=== PATIENT | female | born 1940 | race Caucasian/White ===

== ENCOUNTER 2020-01-18 20:21 | Emergency (ER) | payer MEDICARE ==
[~2020-01-18] VITALS: Ht 157.5 cm; Wt 65.7 kg
[~2020-01-18 20:21] MED LIST: APIX5TAB3 PO; HYDR-4353 PO
[2020-01-18] MEDS ORDERED: morphine 4 MG/ML inj SYRINge IV ONE (21:05)
[2020-01-18] MEDS ORDERED: ondansetron/PF 4mg/2ml inj IV ONE (21:05)
[2020-01-18] MEDS ORDERED: normal saline 1000ml 1,000 ML IV ONE (21:05)
[2020-01-18 22:00] LABS: BASOPHILS # (AUTO) 0.1 X10'3 (0-0.2); BASOPHILS % (AUTO) 0.4 % (0-1); EOSINOPHILS # (AUTO) 0.1 X10'3 (0-0.9); EOSINOPHILS % (AUTO) 0.6 % (0-6); LYMPHOCYTES % (AUTO) 15.4 % (21-51); MEAN CORPUSCULAR HEMOGLOBIN 30.6 PG (27.0-31.0); MEAN CORPUSCULAR HGB CONC 33.4 g/dL (33.0-36.5); MEAN CORPUSCULAR VOLUME 91.8 FL (78-98); MONOCYTES # (AUTO) 1.7 X10'3 (0-0.9); MONOCYTES % (AUTO) 12.9 % (2-12); NEUTROPHILS % (AUTO) 70.7 % (42-75); PLATELET COUNT 381 X10'3 (140-440); RED CELL DISTRIBUTION WIDTH 13.4 % (11.5-14.5); WHITE BLOOD COUNT 12.8 X10'3 (4.5-11.0)
[2020-01-18 22:12] LABS: ALANINE AMINOTRANSFERASE 34 U/L (12-78); ALBUMIN 2.8 G/DL (3.4-5.0); ALBUMIN/GLOBULIN RATIO 0.6 (1.1-1.5); ALKALINE PHOSPHATASE 254 IU/L (46-116); ANION GAP 6 (8-16); ASPARTATE AMINO TRANSFERASE 59 U/L (10-37); BILIRUBIN,TOTAL 0.8 MG/DL (0.1-1.0); BLOOD UREA NITROGEN 9 MG/DL (7-18); CALCIUM 8.8 MG/DL (8.5-10.1); CHLORIDE 102 MMOL/L (99-107); CREATININE 0.69 MG/DL (0.40-0.90); GLUCOSE 121 MG/DL (70-104); MAGNESIUM 1.7 MG/DL (1.5-2.4); POTASSIUM 3.5 MMOL/L (3.5-5.1); SODIUM 135 MMOL/L (135-145); TOTAL CARBON DIOXIDE 26.6 MMOL/L (24-32); TOTAL PROTEIN 7.2 G/DL (6.4-8.2); eGFR 82 ML/MIN
[2020-01-18] MEDS ORDERED: iohexol 300mg/ml 100ml inj. ONE (22:22)
--- NOTE | 2020-01-18 23:00 | NUR ---
Breaking Primary RN. Pt. reports nausea has resolved, will inform primary RN when she returns from break.
--- NOTE | 2020-01-18 23:33 | NUR ---
SENT A PAGE TO SIGNAL AND COMMUNICATIONS MAINTAINER @[phone]
--- NOTE | 2020-01-19 00:40 | NUR ---
DR HOOKS NOTIFIED OF PATIENT REQUEST FOR ADDITIONAL PAIN MEDICATION ORDER RECEIVED
[2020-01-19] MEDS ORDERED: ONDA4TAB6 PO (00:45)
[2020-01-19] MEDS ORDERED: HYDROcodone/acetaminophen 10/325mg tab PO ONE (00:45)
[2020-01-19] MEDS ORDERED: HYDR-4353 PO (00:45)
[2020-01-19] MEDS ORDERED: ondansetron 4mg rapidly disintigrating tab PO ONE (00:45)
--- NOTE | 2020-01-19 00:51 | NUR ---
CALLED LISSETTE CARGO, WILL BE HERE IN ABOUT 45 MIN.
[2020-01-19 02:07] VITALS: BP 131/67
== END 2020-01-19 02:00 | disposition home or self-care (01) ==
LOC: ER 20:21
DX: M79.604 Pain in right leg (principal); M79.605 Pain in left leg; R50.9 Fever, unspecified; Z72.89 Other problems related to lifestyle; Z98.890 Other specified postprocedural states; Z88.2 Allergy status to sulfonamides; Z88.0 Allergy status to penicillin; Z91.018 Allergy to other foods; Z79.899 Other long term (current) drug therapy
CPT/HCPCS: 29505; 36415; 71045; 73701; 80053; 83605; 83735; 84145; 85025; 87040; 93005; 93971; 96361; 96374; 96375; 99285; J2270; J2405; J7030; Q9967

== ENCOUNTER 2020-01-27 13:29 | Emergency (ER) | payer MEDICARE ==
[~2020-01-27] VITALS: Ht 157.5 cm; Wt 64.1 kg
[~2020-01-27 13:29] MED LIST changes: +ONDA4TAB6 PO
[2020-01-27] MEDS ORDERED: HYDROcodone/acetaminophen 10/325mg tab PO ONE (13:50)
[2020-01-27] MEDS ORDERED: POLY17PO10 PO (13:51)
[2020-01-27] MEDS ORDERED: HYDR-4353 PO (13:51)
[2020-01-27] MEDS: magnesium hydroxide 30ml (MOM) UD suspension PO ONE ×2 (14:01→14:04)
[2020-01-27 17:27] VITALS: BP 139/75
== END 2020-01-27 14:30 | disposition home or self-care (01) ==
LOC: ER 13:29
DX: G89.18 Other acute postprocedural pain (principal); M79.672 Pain in left foot; I38 Endocarditis, valve unspecified; Z88.2 Allergy status to sulfonamides; Z88.0 Allergy status to penicillin; Z91.040 Latex allergy status; Z79.899 Other long term (current) drug therapy
CPT/HCPCS: 99283

== ENCOUNTER 2021-06-09 08:33 | Day surgery (SDC) | payer MEDICARE ==
[2021-06-05 15:31] LABS: BASOPHILS % (AUTO) 0.7 % (0-1); EOSINOPHILS # (AUTO) 0.1 X10'3 (0-0.9); EOSINOPHILS % (AUTO) 0.8 % (0-6); LYMPHOCYTES # (AUTO) 2.1 X10'3 (1.1-4.8); LYMPHOCYTES % (AUTO) 31.5 % (21-51); MEAN CORPUSCULAR HEMOGLOBIN 30.7 PG (27.0-31.0); MEAN CORPUSCULAR HGB CONC 33.6 g/dL (33.0-36.5); MEAN CORPUSCULAR VOLUME 91.4 FL (78-98); MEAN PLATELET VOLUME 8.4 FL (7.4-10.4); MONOCYTES # (AUTO) 0.6 X10'3 (0-0.9); MONOCYTES % (AUTO) 8.5 % (2-12); NEUTROPHILS % (AUTO) 58.5 % (42-75); PRE OP HEMATOCRIT 40.6 % (35.0-45.0); PRE OP HEMOGLOBIN 13.6 g/dL (12.0-16.0); PRE OP PLATELET COUNT 225 X10'3 (140-440); RED BLOOD COUNT 4.44 X10'6 (4.20-5.60); RED CELL DISTRIBUTION WIDTH 13.2 % (11.5-14.5)
[2021-06-05 15:46] LABS: ALBUMIN 3.9 G/DL (3.4-5.0); ALBUMIN/GLOBULIN RATIO 1.1 (1.1-1.5); ALKALINE PHOSPHATASE 61 IU/L (46-116); BLOOD UREA NITROGEN 21 MG/DL (7-18); BUN/CREATININE RATIO 31.8 (6.6-38.0); CALCIUM 9.2 MG/DL (8.5-10.1); CHLORIDE 105 MMOL/L (99-107); CREATININE 0.66 MG/DL (0.40-0.90); PRE OP ALT 11 U/L (30-65); PRE OP ANION GAP 12 (8-16); PRE OP AST 20 U/L (10-37); PRE OP BILIRUB, TOTAL 0.8 MG/DL (0.0-1.0); PRE OP GLUCOSE 96 MG/DL (70-104); PRE OP SODIUM 144 MMOL/L (135-145); TOTAL CARBON DIOXIDE 27.1 MMOL/L (24-32); TOTAL PROTEIN 7.6 G/DL (6.4-8.2); eGFR 86 ML/MIN
[~2021-06-09] VITALS: Ht 162.6 cm; Wt 66.5 kg
[2021-06-09] VITALS (11 sets, daily range): BP systolic 117–147; BP diastolic 59–86
[~2021-06-09 08:33] MED LIST changes: -APIX5TAB3 PO; +GLUC100017; -HYDR-4353 PO; +METH900C; +MULT-1085 PO; -ONDA4TAB6 PO; +VITE1000C PO; +acetaminophen 325mg tablet PO ONE; +cefazolin/dext.iso 2gm/50ml IV ONE; +celeCOXIB 100mg capsule PO ONE; +famotidine 20mg tablet PO ONE; +gabapentin 300mg capsule PO ONE; +metoclopramide 5 mg/ml inj IV ONE; +oxyCODONE SR 10mg (sust. release) tab -2 tabs (20mg) PO ONE; +ringers solution, lacted 1,000 ML IV SCH; +tranexamic acid inj. 1,000 MG in 0.7% saline 100 ML PMX IV ONE; +vancomycin/NS 1 GM in NS 250 ML IV ONE
[2021-06-09] MEDS ORDERED: hydrALAZINE 20mg/ml inj. IV PRN (09:05)
[2021-06-09] MEDS ORDERED: morphine 2 MG/ML inj. syringe IV PRN (09:05)
[2021-06-09] MEDS ORDERED: ringers solution, lacted 1,000 ML IV SCH (09:05)
[2021-06-09] MEDS ORDERED: morphine 4 MG/ML inj SYRINge IV PRN (09:05)
[2021-06-09] MEDS ORDERED: ondansetron/PF 4mg/2ml inj IV PRN (09:05)
[2021-06-09] MEDS ORDERED: labetalol 20mg/4ml (5mg/ml) syringe IV PRN (09:05)
[2021-06-09] MEDS ORDERED: fentaNYL/PF 50MCG/1 ML 2ML syringe IV PRN ×2 (09:05)
[2021-06-09] MEDS ORDERED: FENTANYL CITRATE/PF 50 MCG/1 ML VIAL ONE ×3 (11:38→12:29)
[2021-06-09] MEDS ORDERED: propofol inj 20 ML IV ONE ×2 (11:53→12:29)
[2021-06-09] MEDS ORDERED: LIDOcaine 2% (20mg/ml) 5ml vial ONE (11:53)
[2021-06-09] MEDS ORDERED: ondansetron/PF 4mg/2ml inj ONE (11:53)
[2021-06-09] MEDS ORDERED: dexamethasone sod phosphate 4mg/ml inj. ONE (11:53)
[2021-06-09] MEDS ORDERED: BUPIVAcaine 0.5% inj/PF 30 ML ONE (12:07)
[2021-06-09] MEDS ORDERED: ROPIVAcaine 0.5% (5mg/ml) 30ml vial ONE (13:55)
--- NOTE | 2021-06-09 14:00 | NUR ---
PT ARRIVED VIA GURNEY TO RR ACCOMPANIED BY DR SANON-ANESTHESIA REPORT GIVEN, PT WAKING UP, VSS, DENIES PAIN, ASHLEY WRAP TO LEFT LEG-CDI, +2 PULSES NOTED TO BLE, PIV TO LUE 18G, SCDS ON.
--- NOTE | 2021-06-09 15:40 | NUR ---
PT ABLE TO GET UP WITH ASSIST TO GET DRESSED, VSS, PAIN MANAGEABLE-PT HAS TRAMADOL AT HOME, ASHLEY WRAP TO LEFT CALF-CDI, PULSES PRESENT-BLE, ABLE TO MOVE AND LIFT LEG, SCDS OFF, PIV D/CD-CANULA INTACT, D/C INSTRUCTIONS GIVEN TO PT AND DTR-ALL QUESTIONS ANSWERED, TAKEN VIA W/C TO DTR'S CAR WITH ALL BELONGINGS.
== END 2021-06-09 15:40 | disposition home or self-care (01) ==
LOC: PAS 08:33
PROVIDERS: ATTEND Orthopaedic Surgery
DX: T84.84XA Pain due to internal orthopedic prosthetic devices, implants and grafts, initial encounter (principal); G89.18 Other acute postprocedural pain; M17.0 Bilateral primary osteoarthritis of knee; Z20.822 Contact with and (suspected) exposure to COVID-19; Z79.899 Other long term (current) drug therapy; Z88.0 Allergy status to penicillin; Z79.01 Long term (current) use of anticoagulants; Z90.49 Acquired absence of other specified parts of digestive tract; Z90.710 Acquired absence of both cervix and uterus; Z98.890 Other specified postprocedural states; Y83.8 Other surgical procedures as the cause of abnormal reaction of the patient, or of later complication, without mention of misadventure at the time of the procedure; Y92.89 Other specified places as the place of occurrence of the external cause
CPT/HCPCS: 20680; 36415; 64447; 73590; 76000; 76942; 80053; 82948; 85025; 87635; 93005; C9803; J1100; J2270; J2405; J2704; J2765; J2795; J3010; J3370; J3490; J7030; J7120; S0020; Z7506; Z7508; Z7512; A4618; A6446; A6449; A7000

== ENCOUNTER 2021-10-23 11:29 | Emergency (ER) | payer MEDICARE ==
[~2021-10-23] VITALS: Ht 162.6 cm; Wt 63.6 kg
[~2021-10-23 11:29] MED LIST changes: -acetaminophen 325mg tablet PO ONE; -cefazolin/dext.iso 2gm/50ml IV ONE; -celeCOXIB 100mg capsule PO ONE; -famotidine 20mg tablet PO ONE; -gabapentin 300mg capsule PO ONE; -metoclopramide 5 mg/ml inj IV ONE; -oxyCODONE SR 10mg (sust. release) tab -2 tabs (20mg) PO ONE; -ringers solution, lacted 1,000 ML IV SCH; -tranexamic acid inj. 1,000 MG in 0.7% saline 100 ML PMX IV ONE; -vancomycin/NS 1 GM in NS 250 ML IV ONE
[2021-10-23 12:54] LABS: BASOPHILS % (AUTO) 0.1 % (0-1); EOSINOPHILS % (AUTO) 0 % (0-6); HEMATOCRIT 41.2 % (35.0-45.0); HEMOGLOBIN 13.9 g/dl (12.0-16.0); LYMPHOCYTES # (AUTO) 1.4 X10'3 (1.1-4.8); LYMPHOCYTES % (AUTO) 11.6 % (21-51); MEAN CORPUSCULAR HEMOGLOBIN 30.1 PG (27.0-31.0); MEAN CORPUSCULAR HGB CONC 33.7 g/dL (33.0-36.5); MEAN CORPUSCULAR VOLUME 89.4 FL (78-98); MEAN PLATELET VOLUME 9.4 FL (7.4-10.4); MONOCYTES # (AUTO) 1.2 X10'3 (0-0.9); MONOCYTES % (AUTO) 10.1 % (2-12); NEUTROPHILS # (AUTO) 9.5 X10'3 (1.8-7.7); NEUTROPHILS % (AUTO) 78.2 % (42-75); PLATELET COUNT 183 X10'3 (140-440); RED BLOOD COUNT 4.61 X10'6 (4.20-5.60); RED CELL DISTRIBUTION WIDTH 13.3 % (11.5-14.5); WHITE BLOOD COUNT 12.1 X10'3 (4.5-11.0)
[2021-10-23 13:08] LABS: ALANINE AMINOTRANSFERASE 11 U/L (12-78); ALBUMIN 3.5 G/DL (3.4-5.0); ALBUMIN/GLOBULIN RATIO 0.8 (1.1-1.5); ALKALINE PHOSPHATASE 84 IU/L (46-116); ANION GAP 8 (8-16); ASPARTATE AMINO TRANSFERASE 21 U/L (10-37); BLOOD UREA NITROGEN 10 MG/DL (7-18); BUN/CREATININE RATIO 15.9 (6.6-38.0); CALCIUM 8.6 MG/DL (8.5-10.1); CHLORIDE 100 MMOL/L (99-107); CREATININE 0.63 MG/DL (0.40-0.90); GLUCOSE 115 MG/DL (70-104); SODIUM 138 MMOL/L (135-145); TOTAL CARBON DIOXIDE 29.8 MMOL/L (24-32); TOTAL PROTEIN 7.9 G/DL (6.4-8.2); eGFR > 90 ML/MIN
[2021-10-23 13:13] LABS: POTASSIUM 2.9 MMOL/L (3.5-5.1)
[2021-10-23] MEDS ORDERED: POTASSIUM BICARB 20meq eff tab 20 MEQ TABLET.EFF PO STA (15:15)
--- NOTE | 2021-10-23 15:21 | NUR ---
Positive COVID test. MD aware.
[2021-10-23] MEDS ORDERED: ACET-1084 PO (15:30)
[2021-10-23 15:59] VITALS: BP 131/74
== END 2021-10-23 16:05 | disposition home or self-care (01) ==
LOC: ER 11:30
DX: U07.1 COVID-19 (principal); Z88.0 Allergy status to penicillin; Z88.2 Allergy status to sulfonamides; Z88.8 Allergy status to other drugs, medicaments and biological substances
CPT/HCPCS: 36415; 71046; 80053; 83605; 83880; 85025; 87040; 87502; 87503; 87635; 99284; C9803

== ENCOUNTER 2021-11-22 18:18 | Emergency (ER) | payer MEDICARE ==
[~2021-11-22] VITALS: Ht 160 cm; Wt 61.4 kg
[~2021-11-22 18:18] MED LIST changes: +ACET-1084 PO
[2021-11-22 18:19] VITALS: BP 169/73
[2021-11-22] MEDS ORDERED: ibuprofen 200mg tablet PO ONE (19:50)
[2021-11-22] MEDS ORDERED: HYDROcodone/acetaminophen 5mg/325mg tablet PO ONE (21:20)
[2021-11-22] MEDS ORDERED: HYDR-3965 PO (21:49)
== END 2021-11-22 21:55 | disposition home or self-care (01) ==
LOC: ER 18:18
DX: S62.340A Nondisplaced fracture of base of second metacarpal bone, right hand, initial encounter for closed fracture (principal); S90.122A Contusion of left lesser toe(s) without damage to nail, initial encounter; M25.511 Pain in right shoulder; Z72.89 Other problems related to lifestyle; Z98.890 Other specified postprocedural states; Z88.2 Allergy status to sulfonamides; Z88.0 Allergy status to penicillin; Z88.8 Allergy status to other drugs, medicaments and biological substances; Z79.899 Other long term (current) drug therapy; W01.0XXA Fall on same level from slipping, tripping and stumbling without subsequent striking against object, initial encounter; Y93.89 Activity, other specified; Y92.89 Other specified places as the place of occurrence of the external cause; Y99.8 Other external cause status
CPT/HCPCS: 29125; 71045; 73010; 73110; 73660; 99284

== ENCOUNTER 2022-01-29 07:11 | Emergency (ER) | payer MEDICARE ==
[~2022-01-29] VITALS: Ht 157.5 cm; Wt 63.6 kg
[2022-01-29 07:42] LABS: BASOPHILS # (AUTO) 0.1 X10'3 (0-0.2); BASOPHILS % (AUTO) 0.9 % (0-1); EOSINOPHILS # (AUTO) 0.1 X10'3 (0-0.9); EOSINOPHILS % (AUTO) 1.2 % (0-6); HEMATOCRIT 41.2 % (35.0-45.0); HEMOGLOBIN 14.1 g/dl (12.0-16.0); LYMPHOCYTES # (AUTO) 1.9 X10'3 (1.1-4.8); LYMPHOCYTES % (AUTO) 28.4 % (21-51); MEAN CORPUSCULAR HEMOGLOBIN 30.9 PG (27.0-31.0); MEAN CORPUSCULAR HGB CONC 34.4 g/dL (33.0-36.5); MEAN PLATELET VOLUME 8.4 FL (7.4-10.4); MONOCYTES # (AUTO) 0.7 X10'3 (0-0.9); MONOCYTES % (AUTO) 9.8 % (2-12); NEUTROPHILS % (AUTO) 59.7 % (42-75); PLATELET COUNT 195 X10'3 (140-440); RED BLOOD COUNT 4.57 X10'6 (4.20-5.60); RED CELL DISTRIBUTION WIDTH 14.2 % (11.5-14.5); WHITE BLOOD COUNT 6.7 X10'3 (4.5-11.0)
[2022-01-29 08:01] LABS: ALANINE AMINOTRANSFERASE 11 U/L (12-78); ALBUMIN 3.5 G/DL (3.4-5.0); ALBUMIN/GLOBULIN RATIO 0.9 (1.1-1.5); ALKALINE PHOSPHATASE 77 IU/L (46-116); ANION GAP 8 (8-16); ASPARTATE AMINO TRANSFERASE 20 U/L (10-37); BILIRUBIN,TOTAL 0.8 MG/DL (0.1-1.0); BLOOD UREA NITROGEN 18 MG/DL (7-18); BUN/CREATININE RATIO 26.1 (6.6-38.0); CHLORIDE 105 MMOL/L (99-107); CREATININE 0.69 MG/DL (0.40-0.90); GLUCOSE 108 MG/DL (70-104); POTASSIUM 3.8 MMOL/L (3.5-5.1); SODIUM 141 MMOL/L (135-145); TOTAL CARBON DIOXIDE 27.9 MMOL/L (24-32); TOTAL PROTEIN 7.6 G/DL (6.4-8.2); eGFR 82 ML/MIN
[2022-01-29] MEDS ORDERED: HYDROcodone/acetaminophen 5mg/325mg tablet PO ONE (09:15)
[2022-01-29] MEDS ORDERED: ondansetron 4mg rapidly disintigrating tab PO ONE (09:15)
[2022-01-29] MEDS ORDERED: cloNIDine 0.1 mg tablet PO ONE (09:15)
[2022-01-29] MEDS ORDERED: DOXY100C76 PO (10:58)
[2022-01-29] MEDS ORDERED: AZIT-83 PO (10:58)
[2022-01-29] MEDS ORDERED: LISI10TA27 PO (10:58)
[2022-01-29 11:10] VITALS: BP 119/63
== END 2022-01-29 11:12 | disposition home or self-care (01) ==
LOC: ER 07:12
DX: J18.9 Pneumonia, unspecified organism (principal); Z20.822 Contact with and (suspected) exposure to COVID-19; I11.9 Hypertensive heart disease without heart failure; Z88.2 Allergy status to sulfonamides; Z79.899 Other long term (current) drug therapy; Z88.0 Allergy status to penicillin
CPT/HCPCS: 36415; 71045; 80053; 83880; 84484; 85025; 87635; 93005; 99285; C9803

== ENCOUNTER 2022-08-23 08:43 | Emergency (ER) | payer MEDICARE ==
[~2022-08-23] VITALS: Ht 162.6 cm; Wt 68.2 kg
[~2022-08-23 08:43] MED LIST changes: +LISI10TA27 PO
[2022-08-23 12:10] VITALS: BP 174/76
== END 2022-08-23 12:15 | disposition home or self-care (01) ==
LOC: ER 08:43
DX: F07.81 Postconcussional syndrome (principal); H53.8 Other visual disturbances; Z88.0 Allergy status to penicillin; Z88.2 Allergy status to sulfonamides; Z88.8 Allergy status to other drugs, medicaments and biological substances
CPT/HCPCS: 70450; 72125; 99284; L0172

== ENCOUNTER 2023-10-18 09:52 | Emergency (ER) | payer MEDICARE ==
[~2023-10-18] VITALS: Ht 162.6 cm; Wt 70.0 kg
[2023-10-18] MEDS: LIDOcaine 5% patch TP ONE (11:13)
[2023-10-18] MEDS ORDERED: TRAM50TA2 PO (11:36)
[2023-10-18] MEDS ORDERED: LIDO700A32 TD (11:36)
[2023-10-18] MEDS: traMADol 50MG tablet PO ONE (11:44)
[2023-10-18 11:46] VITALS: RESP 20
[2023-10-18 14:10] VITALS: BP 160/98; PULSE 76; TEMP 97.8; O2SAT 98
== END 2023-10-18 14:13 | disposition home or self-care (01) ==
LOC: ER 09:53
DX: S20.211A Contusion of right front wall of thorax, initial encounter (principal); M79.675 Pain in left toe(s); M25.551 Pain in right hip; Z88.2 Allergy status to sulfonamides; Z88.0 Allergy status to penicillin; Z88.8 Allergy status to other drugs, medicaments and biological substances; Z79.899 Other long term (current) drug therapy; W19.XXXA Unspecified fall, initial encounter; Y93.89 Activity, other specified; Y92.89 Other specified places as the place of occurrence of the external cause; Y99.8 Other external cause status
CPT/HCPCS: 71101; 72074; 72170; 99284

== ENCOUNTER 2024-08-03 06:24 | Day surgery (SDC) | payer MEDICARE ==
[~2024-08-03] VITALS: Ht 157.5 cm; Wt 67.4 kg
[2024-08-03] VITALS (9 sets, daily range): BP systolic 115–155; BP diastolic 72–95; PULSE 68–70; RESP 14–20; TEMP 98.5; O2SAT 94–98
[~2024-08-03 06:24] MED LIST changes: +LIDO700A32 TD; +LOSA-415 PO
--- NOTE | 2024-08-03 07:21 | ELECTROCARDIOGRAPH REPORT ---
[facility] Test Date: 2024-08-03 Test Time: 07:16:50 Pat Name: OZIEL AGOSTO Department: [facility] O Patient ID: [facility]-[id number] Room: Gender: F Bilingual Instructor: ZARA : 1940 Requested By: ARLEN MELARA Order Number: [id number] Reading MD: Dr. 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 JESSIE Girard Please click the below link to view image of tracing.
[2024-08-03 07:22] LABS: BASOPHILS # (AUTO) 0.1 X10'3 (0-0.2); EOSINOPHILS # (AUTO) 0.1 X10'3 (0-0.9); EOSINOPHILS % (AUTO) 1.4 % (0-6); HEMATOCRIT 42.2 % (35.0-45.0); HEMOGLOBIN 13.9 g/dl (12.0-16.0); LYMPHOCYTES # (AUTO) 2.2 X10'3 (1.1-4.8); LYMPHOCYTES % (AUTO) 30.6 % (21-51); MEAN CORPUSCULAR HEMOGLOBIN 29.4 PG (27.0-31.0); MEAN PLATELET VOLUME 8.4 FL (7.4-10.4); MONOCYTES # (AUTO) 0.6 X10'3 (0-0.9); MONOCYTES % (AUTO) 9.1 % (2-12); NEUTROPHILS # (AUTO) 4.1 X10'3 (1.8-7.7); NEUTROPHILS % (AUTO) 57.9 % (42-75); PLATELET COUNT 225 X10'3 (140-440); RED BLOOD COUNT 4.74 X10'6 (4.20-5.60); RED CELL DISTRIBUTION WIDTH 14.2 % (11.5-14.5); WHITE BLOOD COUNT 7.1 X10'3 (4.5-11.0)
[2024-08-03] MEDS ORDERED: DILT-35 PO (07:23)
[2024-08-03] MEDS ORDERED: GUAI600T45 PO (07:25)
[2024-08-03] MEDS ORDERED: VITC500T PO (07:26)
[2024-08-03] MEDS ORDERED: VITA1CAP PO (07:27)
[2024-08-03] MEDS ORDERED: PANT-47 PO (07:28)
[2024-08-03 07:34] LABS: PROTHROMBIN TIME 10.5 SECONDS (9.0-12.0)
[2024-08-03 07:45] LABS: ALBUMIN 3.7 G/DL (3.4-5.0); ANION GAP 10 (8-16); BLOOD UREA NITROGEN 19 MG/DL (7-18); BUN/CREATININE RATIO 21.6 (10.0-20.0); CALCIUM 9.1 MG/DL (8.5-10.1); CHLORIDE 106 MMOL/L (99-107); CREATININE 0.88 MG/DL (0.40-0.90); GLUCOSE 119 MG/DL (70-104); MAGNESIUM 1.8 MG/DL (1.5-2.4); SODIUM 140 MMOL/L (135-145); TOTAL CARBON DIOXIDE 24.1 MMOL/L (24-32); eCRCL 38 ML/MIN; eGFR 61 ML/MIN
[2024-08-03] MEDS: sodium bicarbonate 1meq/ml syr 150 ML in dextrose 5%-water 1,000 ML IV ONE (08:11)
[2024-08-03] MEDS: diphenhydrAMINE 25mg capsule PO PRN (08:11)
[2024-08-03] MEDS: normal saline 1,000 ML IV SCH (08:12)
[2024-08-03] MEDS ORDERED: LIDOcaine 1% (10mg/ml) 2ml vial ONE (09:39)
[2024-08-03] MEDS ORDERED: verapamil 2.5 mg/ml inj IV ONE (09:39)
[2024-08-03] MEDS ORDERED: fentaNYL/PF 50MCG/1 ML 2ML syringe ONE (09:40)
[2024-08-03] MEDS ORDERED: iohexol 350 MG/ML 50ML vial IV ONE (09:40)
[2024-08-03] MEDS ORDERED: midazolam 1 mg/ML 2ml injection ONE ×2 (09:40→10:02)
[2024-08-03] MEDS ORDERED: heparin 1,000unit/ml 10ml vial 10 ML ONE (09:40)
[2024-08-03] MEDS ORDERED: iohexol 350MG/ML 100ml bottle IV ONE (09:40)
[2024-08-03] MEDS ORDERED: nitroGLYCERIN 500mcg/5mL D5W 5 ML IV ONE (09:41)
[2024-08-03] MEDS ORDERED: HYDROcodone/acetaminophen 10/325mg tab PO PRN (11:35)
[2024-08-03] MEDS ORDERED: proCHLORperazine 10 MG/2 ml inj IV PRN (11:35)
[2024-08-03] MEDS ORDERED: HYDROcodone/acetaminophen 5mg/325mg tablet PO PRN (11:35)
[2024-08-03] MEDS ORDERED: ondansetron/PF 4mg/2ml inj IV PRN (11:35)
--- NOTE | 2024-08-03 14:47 | CARDIOLOGY REPORT ---
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 Recent echocardiography indicates that the valve is now severely stenotic. There is no prior history of ischemic heart disease and she is not currently complaining of chest pain. It is expected that the valve will be replaced in the near future. PROCEDURES PERFORMED: * Right heart catheterization. * Left heart catheterization. * Left ventriculography. * Selective coronary arteriography. * It was 75 minutes of conscious sedation supervision. DESCRIPTION OF PROCEDURE: The patient was sedated with fentanyl and Versed. An 18-gauge Angiocath was placed in a cubital vein using a standard Seldinger technique and a micropuncture kit, a 6-Scottish sheath was placed in the right radial artery. 5000 units of heparin were given. Right heart catheterization was performed using a 6-Scottish Monroe-Syed catheter. Cardiac output was determined using a thermal dilution technique. Left heart catheterization was performed ultimately using a double lumen Arturo catheter for simultaneous pressure recordings. Left ventriculography was performed using the pigtail LV component of the Amboy catheter. Coronary arteriography was performed using a 6-Scottish Kimny catheter, the right coronary was opacified using a 6-Scottish Omi catheter. The arterial sheath was removed and Vas band was applied. The 6-Scottish sheath in the cubital vein was removed and direct pressure was applied until hemostasis was achieved. RESULTS: HEMODYNAMIC DATA: The mean right atrial pressure was 6 mmHg. Pulmonary arterial pressure was 29/8 mmHg. Mean pulmonary capillary wedge pressure was 10 mmHg. Left ventricular end diastolic pressure was 14 mmHg. There was a 34 mm gradient across the aortic valve. Cardiac output by thermal dilution technique was 3.4 L per minute. The short-form calculated aortic valve area was 0.7 cm2. LEFT VENTRICULOGRAM: The left ventriculogram was technically satisfactory. The ejection fraction appeared to be about 65%. CORONARY ARTERIOGRAPHY: The coronary arteriograms were technically satisfactory. There was a right dominant system. LEFT MAIN CORONARY ARTERY: The left main was a large unobstructed vessel bifurcating in the left anterior descending and circumflex coronary arteries. LEFT ANTERIOR DESCENDING CORONARY ARTERY: The LAD was a large vessel with a small proximal first diagonal, a medium-sized second diagonal which took its origin from the mid LAD. The LAD did not have a completely transapical distribution. The origin of the LAD was narrowed by about 40%. CIRCUMFLEX CORONARY ARTERY: The circumflex was a large main stem vessel. There was a medium to large inferior obtuse marginal branch and a medium to large posterolateral branch. There were mild luminal irregularities but no obstructive lesions in the circumflex coronary artery. RIGHT CORONARY ARTERY: The right coronary artery was a large main stem vessel. There was a medium-sized long posterior descending branch and 2 small posterolateral branches. There were no obstructive lesions in the right coronary artery. CONCLUSIONS: 1. Severe bioprosthetic aortic stenosis. The calculated valve area is 0.7 cm2. 2. Pulmonary arterial pressures were essentially within the normal range. Cvir Tech PA pressure was 29/8 mmHg. 3. Good left ventricular function. The left ventricular ejection fraction was about 65%. 4. No significant coronary artery disease. There was what amounted to approximately 40% narrowing at the origin of the LAD, no other significant lesions were present. RECOMMENDATIONS: Ongoing medical therapy with consideration for aortic valve replacement. ARLEN MELARA DO TID: [id number] RECEIPT: [id number] RP/TAR
== END 2024-08-03 14:30 | disposition home or self-care (01) ==
LOC: SSTAY O 06:24
PROVIDERS: ATTEND Internal Medicine Cardiovascular Disease
DX: I35.0 Nonrheumatic aortic (valve) stenosis (principal); I25.10 Atherosclerotic heart disease of native coronary artery without angina pectoris; I10 Essential (primary) hypertension; K21.9 Gastro-esophageal reflux disease without esophagitis; I47.10 Supraventricular tachycardia, unspecified; Z95.2 Presence of prosthetic heart valve; Z88.0 Allergy status to penicillin; Z88.8 Allergy status to other drugs, medicaments and biological substances; Z79.899 Other long term (current) drug therapy; Z98.890 Other specified postprocedural states; Z72.89 Other problems related to lifestyle
CPT/HCPCS: 36415; 80048; 83735; 85025; 85610; 93005; 93460; 99152; 99153; A6258; A6402; C1751; C1769; C1887; C1894; J1644; J2003; J2250; J3010; J3490; J7030; J7070; Q0163; Q9967; Z7610

== ENCOUNTER 2024-11-01 09:25 | Outpatient (CLI) | payer MEDICARE ==
[~2024-11-01 09:25] MED LIST changes: -ACET-1084 PO; +DILT-35 PO; -GLUC100017; +GUAI600T45 PO; +IODIXANOL 320 MG/ML INFUS..BTL 100ML IV ONE; -LIDO700A32 TD; -LISI10TA27 PO; -LOSA-415 PO; -METH900C; +PANT-47 PO; +VITA1CAP PO; +VITC500T PO; -VITE1000C PO
[2024-11-01 09:58] LABS: MEAN PLATELET VOLUME 8.4 FL (7.4-10.4); RED CELL DISTRIBUTION WIDTH 14.9 % (11.5-14.5)
[2024-11-01 10:13] LABS: APTT 36 SECONDS (22-32); INR 1.3 INR
[2024-11-01 10:47] LABS: CREATININE 0.75 MG/DL (0.40-0.90); PRO BRAIN NATRIURETIC PEPTIDE 851 PG/ML (0-450); TOTAL CARBON DIOXIDE 26.7 MMOL/L (24-32); eGFR 74 ML/MIN
--- NOTE | 2024-11-01 10:50 | RADIOLOGY REPORT ---
CHEST RADIOGRAPH Indication: TAVR SOB Technique: Frontal and lateral view of the chest was obtained Comparison: DI CHEST,SINGLE VIEW on DOS: 09/11/24, DI UNI RIBS WITH PA CHEST on DOS: 10/18/23, DI THORA CIC SPINE COMPLETE on DOS: 10/18/23, CHEST,TWO VIEWS on DOS: 10/23/21 FINDINGS: Lines and Tubes: None Lungs: Clear Pleura: No effusion. No pneumothorax. Cardiomediastinal contours: Unremarkable status post median sternotomy. Bones: Unremarkable IMPRESSION: 1. No evidence of acute disease.
--- NOTE | 2024-11-01 12:50 | VASCULAR REPORT ---
Carotid Duplex Date: 11/01/2024 09:50 AM Clinical History: pre op Comparison: MR MRI HEAD on DOS: 09/11/24, CT CTA NECK/HEAD on DOS: 09/11/24, CT CERVICAL SPINE on DOS: 08/23/22 Technique: Duplex Doppler evaluation of the extracranial carotid and vertebral arteries including col or Doppler and spectral/pulsed waveform analysis was performed. Findings: RIGHT SIDE: The peak systolic velocities are 51 cm/s in the distal CCA and 74 cm/s in the proximal ICA.The ICA/CC A ratio is 1.45. The external carotid artery is patent with peak systolic velocity of 40 cm/s proximally. There is appropriate antegrade flow in the right vertebral artery. The subclavian artery is patent with peak systolic velocity of 102 cm/s proximally. LEFT SIDE: The peak systolic velocities are 59 cm/s in the distal CCA and 98cm/s in the proximal ICA. The ICA/ CCA ratio is 1.66. The external carotid artery is patent with peak systolic velocity of 42 cm/s proximally. The subclavian artery is patent with peak systolic velocity of 78 cm/s proximally. There is appropriate antegrade flow in the left vertebral artery. IMPRESSION: No hemodynamically significant stenosis noted in the right carotid system. No hemodynamically significant stenosis noted in the left carotid system. Reference: Radiology 2003; 229:340-346
--- NOTE | 2024-11-01 22:27 | RADIOLOGY REPORT ---
EXAM: CTA TAVR CLINICAL HISTORY: AV STENOSIS,SOB,CAROTID STENOSIS TECHNIQUE: Arterial phase spiral acquisitions obtained through the chest, abdomen, and pelvis. Multip lanar reconstructions were generated. Using automated software tools and 3-D reconstructions, imaging analysis of the aortic valve was performed. Dose reduction effected using automated exposure contro l and iterative reconstruction technique. 2-D and 3-D reformations are generated at a separate [facility] workstation. All CT scans at this facility are performed using dose modulation techniques as appropriate to a perf ormed exam including the following: automated exposure control with adjustment of the mA and/or kV a ccording to patient size. RADIATION DOSE: CTDI vol: 66 mGy DLP: 1947 mGy-cm Dose information generated by the CT scanner is available in PACS. IV Contrast: 125 cc visipaque 320 COMPARISON: DI CHEST,TWO VIEWS on DOS: 11/01/24, CT CTA NECK/HEAD on DOS: 09/11/24, DI CHEST,SINGLE VIE W on DOS: 09/11/24, CT CT STROKE ALERT on DOS: 09/11/24 FINDINGS: Aortic valve annulus diameter: 22.4 x 19.8 mm. Aortic valve area: 3.48 cm2. Perimeter: 66.8 mm. Diameter through left coronary sinus: 31.0 mm. Diameter through right coronary sinus: 31.1 mm. Diameter through the noncoronary sinus: 29.9 mm. Diameter at the sinotubular junction: 22.2 mm. Distance from the right coronary sinus to right coronary orifice: 14.7 mm. Distance from left coronary sinus to left coronary orifice: 14.3 mm. Diameter of ascending aorta: 34.5 mm. Diameter of abdominal aorta: 14.8 mm. Diameter of the right common iliac artery: 9.18 mm. Diameter of the right external iliac artery: 6.79 mm. Diameter of the right common femoral artery: 7.21 mm. Diameter of left common iliac artery: 9.24 mm. Diameter of the left external iliac artery: 6.20 mm. Diameter of the left common femoral artery: 7.38 mm. Optimal coplanar projections: 3 cusp view- KAZAKH 9, CAU 17 Anterior view -GREEN 0, CAU 28 No-ORACLE DATABASE ADMINISTRATOR-CAU view -KAZAKH 22, CAU 0 Other findings: Chest: There is no lobar consolidation. There is minimal dependent atelectasis in bilateral lower lob es of the lungs. There is no bronchiectasis or honeycombing. There is no pleural effusion. There i s no pneumothorax. The heart is enlarged there is replaced aortic valve. There is no significant sten osis or dissection of the thoracic or abdominal aorta. There is no large central pulmonary embolism. There is no pericardial effusion. No pathologic lymphadenopathy is identified in the chest. There are sternotomy wires. There are old healed rib fractures. No acute osseous abnormality is identified in the thorax. There is a large hiatal hernia with of the gastric fundus and gastroesophageal junction l ocated in the posterior mediastinum. Spleen: Unremarkable. Liver: Normal in size and contour. No focal hepatic lesion. Gallbladder/bile ducts: The gallbladder is surgically absent. There is mild intrahepatic and extrahep atic biliary dilation likely secondary to cholecystectomy. Pancreas: Within normal limits Adrenal glands: Normal Kidneys and ureters: Grossly symmetric enhancement. No solid renal mass. No hydronephrosis of either kidney. Urinary bladder: Unremarkable. Reproductive structures: The uterus is absent. The ovaries are within normal limits. Peritoneum/gastrointestinal: No free fluid is identified in the abdomen or pelvis. There is mild sigm oid diverticulosis without evidence of diverticulitis. The colonic stool burden is small to moderate . The appendix is not seen. There is no inflammatory change about the cecum. Lymph nodes: No pathologic lymphadenopathy is identified in the abdomen or pelvis. Bones: There are old healed fractures of the left superior and inferior pubic rami. No acute osseous abnormality is identified in the abdomen or pelvis. Soft tissues: Unremarkable. IMPRESSION: TAVR MEASUREMENTS ABOVE.
== END 2024-11-01 23:59 | disposition home or self-care (01) ==
LOC: RAD 09:25
PROVIDERS: ATTEND Internal Medicine Cardiovascular Disease
DX: Z01.818 Encounter for other preprocedural examination (principal); I35.0 Nonrheumatic aortic (valve) stenosis; R06.02 Shortness of breath; I65.29 Occlusion and stenosis of unspecified carotid artery; I51.7 Cardiomegaly; K44.9 Diaphragmatic hernia without obstruction or gangrene; K57.30 Diverticulosis of large intestine without perforation or abscess without bleeding; R19.5 Other fecal abnormalities
CPT/HCPCS: 36415; 71046; 71275; 74174; 75572; 80053; 83880; 85025; 85610; 85730; 93880; Q9967

== ENCOUNTER → 2025-02-14 | Emergency (ER) | payer MEDICARE ==
[~2025-02-14] VITALS: Ht 160 cm; Wt 68.2 kg
[~2025-02-14] MED LIST changes: -IODIXANOL 320 MG/ML INFUS..BTL 100ML IV ONE
[2025-02-14 09:46] VITALS: TEMP 97.8
--- NOTE | 2025-02-14 10:14 | ELECTROCARDIOGRAPH REPORT ---
[facility] Test Date: 2025-02-14 Test Time: 10:12:05 Pat Name: OZIEL AGOSTO Department: [facility]- Patient ID: [facility]-[id number] Room: Gender: F Substance Abuse Nurse: : 1940 Requested By: OSMEL JEREZ Order Number: [id number] Reading MD: Dr. Azam Wayne Measurements Intervals [place] Rate: 84 P: 0 MA: 0 QRS: 54 QRSD: 91 T: 33 QT: 385 QTc: 456 Interpretive Statements Atrial fibrillation RSR' in V1 or V2, right VCD or RVH Electronically Signed On 02-14-2025 19:05:[address] Azam Wayne Please click the below link to view image of tracing.
--- NOTE | 2025-02-14 10:42 | Physician Documentation ---
History of Present Illness ~ Chief Complaint: Head Injury Stated Complaint: HIT HEAD Time Seen by MD: 10:03 OK to notify your PCP?: Yes Primary Medical Doctor: No PCP. Cardiolohist: Dr. Lozano Mode of Arrival: [facility] 84-year-old female patient came to the emergency room because she hit her head with a cabinet door this morning. She is on Xarelto for atrial fibrillation. Unknown KO. She has no focal neurological deficit. No nausea vomiting. Tetanus within 5 years?: Yes Medication Reconciliation Allergies: Coded Allergies: Sulfa (Sulfonamide Antibiotics) (Verified Allergy, Severe, RASH, 02/14/25) lactase (Verified Allergy, Unknown, 02/14/25) lisinopril (Verified Allergy, Unknown, 02/14/25) losartan (Verified Allergy, Unknown, 02/14/25) Penicillins (Verified Adverse Reaction, Intermediate, LIGHT HEADED, 02/14/25) Uncoded Allergies: GRAINS (Allergy, Severe, 01/10/20) FENTNYL (Allergy, Unknown, 09/11/24) Scheduled Ascorbic Acid* (Vitamin C*), 2 TAB PO Q12H, (Reported) Diltiazem HCl (Diltiazem 24Hr ER), 1 CAP PO DAILY, (Reported) Guaifenesin (Mucinex), 1 TAB PO Q12H, (Reported) Multivitamin (Multi Vitamin Daily), 1 TAB PO DAILY, (Reported) Pantoprazole Sodium (PROTONIX tablet), 1 TAB PO DAILY, (Reported) Vitamin B Complex (Vitamin B Complex), 1 CAP PO DAILY, (Reported) Past Medical History Past Medical History: Heart Valve Disease Past Surgical History: heart valve surgery Patient History: FH: alcoholism FATHER FH: aortic aneurysm MOTHER FH: lung cancer FAMILY/OTHER Alcohol Use: Rarely Drug Use: none Lives with: Alone Lives In: Home Occupation: retired Review of Systems ROS As stated above in the HPI, otherwise all systems are reviewed and negative. Physical Exam Vital Signs: Temperature: 97.8, Source: Temporal, Heart Rate: 89, Respiratory Rate: 16, BP: 163/101, Pulse Oximetry: 99, Weight: 68.180 Physical Exam Reviewed vital signs and they are well within normal range. Const: Patient is alert oriented and pain in the right top of the head Head: That is a big hematoma there Eyes: Normal Conjunctiva ENT: Normal External Ears, Nose and Mouth. Moist mucous membranes Neck: Full range of motion. No meningismus Resp: Clear to auscultation bilaterally. Normal work of breathing Cardio: Heart rate less between 90 and 100 per minute. Regular rate and rhythm, no murmurs. Skin well perfused Abd: Soft, non-tender, non-distended. Normal bowel sounds. No rebound or guarding Skin: No petechiae or rashes. Warm and dry Back: No midline or flank tenderness Ext: No cyanosis, or edema Neuro: Awake and alert slight GCS 15/15 and no focal deficits Psych: Normal Mood and Affect Procedures Additional Procedures Procedure Note ED MD interpretation of EKG done at 10:12 hours shows atrial fibrillation at a rate of 84. Normal axis and normal intervals and no ischemic changes. Progress Results/Orders Results/Orders Orders - OSMEL JEREZ MD Stat Ekg (02/14/25 ) Completed Orders - OSMEL JEREZ MD Stat Ekg (02/14/25 ) Lidocaine 1% W/Epi 1:100,000 (Xylocaine (02/14/25 11:15) Vital Signs 02/14/25 02/14/25 02/14/25 02/14/25 09:46 10:14 11:11 12:01 Temp 97.8 Pulse 89 78 89 Resp 18 16 16 16 B/P (MAP) 163/101 151/95 (113) 147/81 (103) Pulse Ox 99 99 97 O2 Flow Rate 0 0 Medical Decision Making Additional information obtaine: family Findings During the physical examination, the findings suggestive of acute life- threatening condition such as JVD, tracheal deviation, acidotic breathing, noisy stridorous breath sounds, pulses paradoxus, muffled heart sounds, unequal breath sounds, abdominal rigidity and rebound tenderness, focal neurological deficits, cool clammy skin, severe hypotension, severe tachycardia or bradycardia are absent. Mechanical head injury with momentary KO on Xarelto. That is the reason we did the CT of the head and cervical spine and they are negative. Scalp laceration is cleaned up and staple after infiltrating with lidocaine with epi. Patient tolerated the procedure well Patient does not have identifiable emergent medical condition that warrants inpatient medical care at this time. The patient is deemed safe for discharge with outpatient follow up. DISCLAIMER Inadvertent spelling and grammatical errors,inadvertent litigation secretary errors,syntax errors, grammatical errors, and spelling errors are likely due to EMR/dictation software use and do not reflect on the overall quality of patient care. Note that the electronic time recorded on this note does not necessarily reflect the actual time of the patient encounter. Differential Dx:Considerations: Include: Closed head injury, Fracture, Abrasion, Contusion, Laceration Departure Disposition: 01 HOME / SELF CARE / HOMELESS Impression: Primary Impression: Occipital scalp laceration Additional Impressions: Contusion Closed head injury Concussion Condition: Stable Discharge Instructions: Fall Prevention in the Home, Adult, [id number] Additional Instructions: Thank you for coming to our Emergency Department today. Please take extra-strength Tylenol one tablet together with 200 mg of ibuprofen one tablet every 6 hours as needed for pain. Please ask your nurse or provider if you have questions about your care today and do not leave until all your questions have been answered. Please use any medications given as directed and follow-up with your doctor (or the doctor you were referred to) in the next 1-3 days. Your primary care doctor can help to coordinate outpatient specialty care and provide authorization for specialty referral as needed. If you do not have a primary care doctor you may follow up at a [facility]. You may also use motrin and tylenol as needed for fever and/or pain unless instructed otherwise by your provider or nurse. Indications for more urgent follow-up have been discussed, but you may return to the Emergency Department at ANY time for any worrisome or worsening symptoms. County Facilities: [facility] Facilities: [facility]: [facility] [place] Address:[address] [place] [address] [facility]: [place] Address:[address] [place] [id number] [facility]: [facility] Address:[address] [place] [address] [facility]ly [facility]amed [facility] Address:[address] [place], [place] [id number] Registration Billing Pharmacy Referrals [facility] Address:[address] [place] [address] Referrals: NO PRIMARY CARE PROVIDER (PCP) Signature Scribe Signature: x Attestation: OSMEL Barriga MD Feb 14, 2025 10:42
--- NOTE | 2025-02-14 10:49 | RADIOLOGY REPORT ---
COMPUTERIZED TOMOGRAPHY OF THE HEAD WITHOUT CONTRAST COMPUTERIZED TOMOGRAPHY OF THE CERVICAL SPINE, NONCONTRAST REASON FOR STUDY: head strike COMPARISON: MR MRI HEAD on DOS: 09/11/24, CT CTA NECK/HEAD on DOS: 09/11/24, CT CT STROKE ALERT on DOS: 09/11/24, CT HEAD on DOS: 08/23/22 TECHNIQUE: Helical tomographic scans were obtained through the brain. 2-D coronal and sagittal reformatted images are provided. Automated exposure control was used. CT of the entire cervical spine was performed in routine fashion with sagittal and coronal reconstructions. Soft tissues and bone windows were filmed. Radiation optimization: All CT scans at this facility use at least one of these dose optimization techniques: Automated exposure control mA and/or kV adjustment per patient size (includes targeted exams where dose is matched to clinical indication) or iterative reconstruction. RADIATION DOSE: Head: CTDI: 46 mGy DLP: 891 mGy-cm C-Spine: CTDI: 20 mGy DLP: 391 mGy-cm FINDINGS: No suspicious intracranial hyperdensity to suggest acute blood. There is a prominent perivascular space inferior to the left basal ganglia. There is an old lacunar infarct in the left ce. There is no mass effect nor midline shift. There is moderate generalized volume loss with compensatory enlargement of the CSF spaces. There is no hydrocephalus. The suprasellar cistern is intact. There are scattered and confluence periventricular and deep white matter hypodensities that are most consistent with chronic microangiopathic changes. The calvarium is intact. The visualized mastoid air cells and paranasal sinuses are clear. There is right parietal scalp swelling and laceration. The vertebral bodies are normal in height with no evidence of fracture. There is straightening of the normal cervical lordosis which may be secondary to patient positioning or muscular spasm. There is severe disc height loss with endplate hypertrophy C3-C7, worst at C5-C6 there is severe bony neural foraminal narrowing on the right at C5-C6 and bilaterally at C6-C7 secondary to endplate hypertrophy. There is severe facet joint narrowing at C3-C4 and C7-T1. The prevertebral soft tissues are within normal limits. The visualized lung apices are grossly clear. IMPRESSION: Right parietal scalp swelling and laceration. No acute intracranial abnormality. Moderate generalized volume loss with chronic small vessel ischemic change. 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 No evidence of acute fracture of the cervical spine. Severe bony neural foraminal narrowing on the right at C5-C6 and bilaterally at C6-C7 secondary to endplate hypertrophy.
[2025-02-14] MEDS: LIDOcaine 1% W/epiNEPHrine 1:100,000 20ml vial SQ ONE (11:18)
[2025-02-14 12:01] VITALS: BP 147/81; PULSE 89; RESP 16; O2SAT 97
== END | disposition home or self-care (01) ==
LOC: ER 09:42
DX: S01.01XA Laceration without foreign body of scalp, initial encounter (principal); S06.0XAA Concussion with loss of consciousness status unknown, initial encounter; I48.91 Unspecified atrial fibrillation; Z88.0 Allergy status to penicillin; Z88.2 Allergy status to sulfonamides; Z88.8 Allergy status to other drugs, medicaments and biological substances; Z79.01 Long term (current) use of anticoagulants; Z79.899 Other long term (current) drug therapy; Z60.2 Problems related to living alone; W22.8XXA Striking against or struck by other objects, initial encounter; Y93.89 Activity, other specified; Y92.89 Other specified places as the place of occurrence of the external cause; Y99.8 Other external cause status
CPT/HCPCS: 70450; 72125; 93005; 99284; A6402; J7030; 12001; A6449